=== PATIENT | female | born 1945 | race Caucasian/White ===

== ENCOUNTER → 2018-05-17 15:58 | Outpatient (CLI) | payer MEDICARE, BC, SELFPAY ==
--- NOTE | 2018-05-17 16:01 | CI_ITS ---
Cerebrovascular Exam Indications: 785.9 Bruit. IMPRESSIONS 1. The bilateral vertebral arteries are patent with normal antegrade flow. 2. Study suggests less than 20% stenosis involving the right internal carotid artery. 3. Study suggests 20-49% stenosis involving the left internal carotid artery. Visually looks greater than 50% Carotid duplex study. Complete study and Doppler flow study including spectral analysis, color and naqvi scale imaging. Location: Vascular laboratory. Patient status: Outpatient. Tables: Arterial flow: + +--------+--------+ Location V sys V ed + +--------+--------+ Right CCA - proximal 66cm/s 18.9cm/s + +--------+--------+ Right CCA - distal 58.9cm/s 16.5cm/s + +--------+--------+ Right ECA 82.5cm/s -------- + +--------+--------+ Right ICA - proximal 73.9cm/s 23.6cm/s + +--------+--------+ Right ICA - mid 67.6cm/s 20.4cm/s + +--------+--------+ Right ICA - distal 77cm/s 26.7cm/s + +--------+--------+ Right vertebral 47.1cm/s -------- + +--------+--------+ Left CCA - proximal 79.4cm/s 18.1cm/s + +--------+--------+ Left CCA - distal 85.6cm/s 25.1cm/s + +--------+--------+ Left ECA 72.3cm/s -------- + +--------+--------+ Left ICA - proximal 115cm/s 28.3cm/s + +--------+--------+ Left ICA - mid 91.1cm/s 27.5cm/s + +--------+--------+ Left ICA - distal 108cm/s 31.4cm/s + +--------+--------+ Left vertebral 55.8cm/s -------- + +--------+--------+ Velocity ratios: + + + + + + Right, V sys Right, V ed Left, V sys Left, V ed + + + + + + Max ICA/dist CCA 1.31 1.62 1.34 1.25 + + + + + + (Report amended ) Electronically signed by: Dominik Park [id number]
== END ==
PROVIDERS: PCP Family Medicine; Visit Provider Internal Medicine
DX: R09.89 Other specified symptoms and signs involving the circulatory and respiratory systems (principal); R42 Dizziness and giddiness
CPT/HCPCS: 93270; 93880

== ENCOUNTER → 2018-05-19 09:09 | Outpatient (CLI) | payer MEDICARE, BC, SELFPAY ==
--- NOTE | 2018-05-19 09:15 | CA_ITS ---
PROCEDURE: 2-D M-mode and color Doppler study INDICATIONS FOR THE TEST: Chest pain COPD Heart Murmur Tobacco Smoking Palpitations Fatigue Syncope Edema Hypertension+Diabetes Mellitus Rheumatic Fever SOB+JEONG Obesity Hyperlipidemia+ Family History HD Additional History KEENAN PATIENT INFORMATION HEIGHT: 62 WEIGHT:183 GENDER: Female B/P:175/66 2-D/M-MODE INTERPRETATION: 2-D MEASUREMENTS OBSERVED VALUES IN CMS Right Ventricular Dimension (RVDd) 2.4 Interventricular Septum (Thickness)(IVsd) 1.4 Left Ventricular Internal Dimensions(LVIDd) 2.6 Left Ventricular Posterior Wall (Thickness)(LVPWd) 1.2 Aortic Root 3.0 Aortic Cusp Separation 1.9 Left Atrial Dimensions (LAD) 3.9 2D 1. Left atrium is mildly enlarged, left ventricle is normal size, mild concentric left ventricular hypertrophy, visually estimated ejection fraction 55% with no regional wall motion abnormality. 2. The right atrium and right ventricle are normal size and contractility. 3. The aortic valve is thickened and calcified leaflet continue to display mobility. 4. The mitral and tricuspid valve leaflets are minimally thickened. 5. The pulmonic valve is poorly visualized. 6. No significant pericardial effusion noted. DOPPLER INTERROGATION: Doppler interrogation of the aortic, mitral and tricuspid valvular presence of mild aortic, mild mitral and tricuspid regurgitation. Calculated right ventricular systolic pressure is 39 mmHg consistent with mild pulmonary hypertension, grade 1 diastolic dysfunction seen with tissue Doppler evidence of raised left atrial pressure. CONCLUSION: 1. Mildly enlarged left atrium, normal left ventricular size, mild concentric left ventricular hypertrophy, visually estimated ejection fraction 55% with no regional wall motion abnormality, grade 1 diastolic dysfunction seen with tissue Doppler evidence of raised left atrial pressure. 2. Mild aortic, mild mitral and tricuspid regurgitation, calculated right ventricular systolic pressure 39 mmHg consistent with mild pulmonary hypertension. 3. No significant pericardial effusion noted.
--- NOTE | 2018-05-19 10:22 | CT_ITS ---
CT angio neck INDICATION: ITS.REASON: BRUIT, DIZZINESS, SOB, abnormal duplex of the carotid arteries ORDERING PHYSICIAN: Rafa Fountain MD PATIENT AGE: 72 years COMPARISON: None TECHNIQUE: Axial images are obtained following the intravenous administration of 100 mL of Isovue-370 contrast. Sagittal and coronal reformatted images are reviewed as well. All CT scans at the facility use one or more dose reduction, viz: automated exposure control, ma/kV adjustment per patient size (including targeted exams where dose is matched to indication, i.e. head), or iterative reconstruction technique. FINDINGS: No significant narrowing of the great vessels. Calcific plaque is present at the right bulb and proximal ICA with approximately 30% stenosis of the proximal ICA. The mid and distal aspect of the right ICA have an unremarkable appearance with only mild atheromatous calcification within the cavernous portion. No aneurysms apparent. Small amount of plaque is present at the ostium of the vertebral artery on the right. Left common carotid has an unremarkable appearance. There is focal calcific plaque at the posterior aspect of the ostium of the left internal carotid artery. This causes moderate to high-grade stenosis of 66-70%. The distal aspect of the ICA is unremarkable appearance. Left vertebral has an unremarkable appearance. Nonvascular findings: Multiple surgical clips are present throughout the neck. Scattered small nodes are present. No adenopathy or mass or abnormal fluid collection apparent. No enhancing lesions of the brain. IMPRESSION: 1. Moderate to high grade stenosis of the ostium of the left internal carotid artery of 66-70% secondary to a focal calcific plaque posteriorly 2. 30% stenosis of the proximal right ICA. 3. No evidence of great vessel stenosis. 4. Patent bilateral vertebral arteries
[2018-05-19 10:27] LABS: Anion Gap 10.2 mEq/L (5-15); Blood Urea Nitrogen 19 mg/dL (7-18); Calcium 8.6 mg/dL (8.5-10.1); Carbon Dioxide 29 mmol/L (21.0-32.0); Chloride 104 mmol/L (98-107); Creatinine,Serum 0.92 mg/dL (0.55-1.02); Estimated Glomerular Filt Rate 60 ml/min (>60); GFR (African American) 72 ML/MIN (>60); Glucose 88 mg/dL (74-106); Potassium 4.2 mmoL/L (3.5-5.1); Sodium 139 mmol/L (136-145)
== END ==
PROVIDERS: Urology; PCP Family Medicine; Visit Provider Internal Medicine
DX: R06.02 Shortness of breath (principal); I10 Essential (primary) hypertension; R09.89 Other specified symptoms and signs involving the circulatory and respiratory systems; R20.0 Anesthesia of skin; R42 Dizziness and giddiness
CPT/HCPCS: 36415; 70498; 80048; 93270; 93306; Q9967

== ENCOUNTER → 2018-05-21 11:51 | Outpatient (CLI) | payer MEDICARE, BC, SELFPAY ==
--- NOTE | 2018-05-21 11:53 | NM_ITS ---
SPECT MYOCARDIAL PERFUSION SCAN, REST AND STRESS: EXERCISE STRESS: [facility] REVIEW QGS EF AND WALL MOTION EVALUATION: QPS - PERFUSION EVALUATION: HISTORY: Fatigue, HTN PROCEDURE: Rest imaging performed after administration of10.50 millicuries Tc MIBI. Dose administered at12:10 p.m., with imaging thereafter. Stress imaging was then performed following5 minutes of exercise stress. The patient achieved a heart [id number] with projected heart rate of125 . Resting BP189/90 with stress 195/95. At maximum exercise stress,31.1 millicuries Tc MIBI administered at1:50 p.m. with [id number] minutes thereafter. FINDINGS: Perfusion Evaluation: The single slice spect images as well as the [facility] bull's-eye data summary were reviewed. Wall Motion and Ejection Fraction Evaluation: Gated SPECT review and analysis used to evaluate these features. There is a 72 % left ventricular ejection fraction. There seems to be good wall motion Stress images reveal decreased activity in the anterior wall while rest images reveal normal myocardial activity IMPRESSION: Anterior wall reversible ischemia with normal ejection fraction normal wall motion. High risk abnormal stress test
--- NOTE | 2018-05-21 14:39 | HMH.ITSHM ---
Current Home Medications as stated by this patient Dahlia Flores or sales representative [employer]. []lisinopril levothyroxine asa zoloft omeprazole
== END ==
PROVIDERS: PCP Family Medicine; Visit Provider Internal Medicine
DX: I10 Essential (primary) hypertension (principal); R06.02 Shortness of breath; R09.89 Other specified symptoms and signs involving the circulatory and respiratory systems; R20.0 Anesthesia of skin; R20.2 Paresthesia of skin; R55 Syncope and collapse
CPT/HCPCS: 78452; 93017; A9502

== ENCOUNTER → 2020-10-22 10:29 | Outpatient (CLI) | payer MEDICARE, BC, SELFPAY ==
[2020-10-22 11:13] LABS: Chloride 104 mmol/L (98-107); Sodium 138 mmol/L (136-145)
[2020-10-22 11:14] LABS: Potassium 4.5 mmoL/L (3.5-5.1)
[2020-10-22 11:16] LABS: Blood Urea Nitrogen 19 mg/dl (7-17); Estimated Glomerular Filt Rate 54 ml/min (>60); GFR (African American) 65 ML/MIN (>60)
[2020-10-22 11:17] LABS: Anion Gap 14.5 mEq/L (5-15); Carbon Dioxide 24 mmol/L (22.0-30.0); Glucose 84 mg/dl (74-100)
== END ==
PROVIDERS: Visit Provider Internal Medicine
DX: I10 Essential (primary) hypertension (principal); I25.10 Atherosclerotic heart disease of native coronary artery without angina pectoris; I27.20 Pulmonary hypertension, unspecified; I65.29 Occlusion and stenosis of unspecified carotid artery; R09.89 Other specified symptoms and signs involving the circulatory and respiratory systems
CPT/HCPCS: 36415; 80048

== ENCOUNTER → 2020-12-10 13:16 | Outpatient (CLI) | payer MEDICARE, BC, SELFPAY ==
--- NOTE | 2020-12-10 | US_ITS ---
APPROVED REPORT Music Education Adjunct Professor: Ana CORTEZ Indications Limb Pain: Left Rest Pain: Edema CAD Risk Factors Hypertension CAD Pressures/Indices Right Indices Left Indices Brachial 157.00 mmHg Brachial 157.00 mmHg Low Thigh 171.00 mmHg 1.09 Low Thigh 254.00 mmHg 0.00 Calf 140.00 mmHg 0.89 Calf 154.00 mmHg 0.98 Ankle(PT) 137.00 mmHg 0.87 Ankle(PT) 168.00 mmHg 1.07 Ankle(DP) 152.00 mmHg 0.97 Ankle(DP) 169.00 mmHg 1.08 Digit 111.00 mmHg 0.71 Digit 124.00 mmHg 0.79 Findings Abnormal weakened pulses noted in bilateral posterior tibial arteries. Dampened waveforms throughout exam. Rt SARIAH=0.97 Lt SARIAH=1.08 Rt TPI=0.71 Lt TPI=0.79 Conclusion Abnormal weakened pulses noted in bilateral posterior tibial arteries. Dampened waveforms throughout exam. Rt SARIAH=0.97 Lt SARIAH=1.08 Rt TPI=0.71 Lt TPI=0.79 Electronically signed by : Dominik Park MD 12/10/2020 15:47:51
== END ==
PROVIDERS: PCP Family Medicine; Visit Provider Urology
DX: R09.89 Other specified symptoms and signs involving the circulatory and respiratory systems (principal); M79.662 Pain in left lower leg
CPT/HCPCS: 93923

== ENCOUNTER → 2022-06-04 13:51 | Outpatient (CLI) | payer MEDICARE, BC, SELFPAY ==
--- NOTE | 2022-06-04 13:59 | CA_ITS ---
APPROVED REPORT EXAM: Comprehensive 2D, Doppler, and color-flow Echocardiogram Gyroscopic Engineering Technician: Nellie Styles RVT Ht: 5 ft 3 in Wt: 174lbs BSA: 1.82 BP: 171/60 mmHg Indications: SOA,RBBB,CAD,PHTN,HTN 2D Dimensions LVOT 2.01 cm (M/F) 1.5-2.5 LA Volume 83.50 mL LA Volume Index 45.88 mL/m2 (M/F) 16-34 M-Mode Dimensions RVDd 2.11 cm (0.9-2.6) LA Diam 4.47 cm (1.9-4.0) LVDd 5.13 cm (3.5-5.7) Ao Diam 3.06 cm (2.0-3.7) LVDs 3.49 cm (3.5-5.7) IVSd 0.84 cm (0.6-1.1) PWd 0.54 cm (0.6-1.1) EF (Teich) 59.80% FS 32.00% EDV (Teich) 125.50 mL TAPSE 1.66 (<1.7) ESV (Teich) 50.50 mL LV Diastology E Decel Time 187.00 (160-240 msec) MED E' 5.20 (< 7 cm/sec) E'/MED E' Ratio 24.08 (>14) LAT E' 11.30 (<10 cm/sec) E/LAT E' Ratio 11.08 (>14) Aortic Valve AI PHT 808.00 ms AO Peak GR. 9.00 mmHg Mitral Valve MV E Max Josafat. 125.00 (40-130 cm/s) MV Decel. Time 187.00 (160-240 ms) MV PHT 55.00 ms Pulmonary Valve PV Peak Velocity 132.00 (50-150 cm/s) Tricuspid Valve TR P. Velocity 305.00 cm/s RAP Estimate 10.00 mmHg RVSP 47.20 mmHg Left Ventricle Left atrium is moderately enlarged, left ventricle is normal size, mild concentric left ventricular hypertrophy, estimated ejection fraction 55% with no regional wall motion abnormality, grade 1 diastolic dysfunction seen with tissue Doppler evidence of raise left atrial pressure. Right Ventricle Right atrium and right ventricle are normal size and contractility. Aortic Valve Aortic valve is thickened and calcified without aortic stenosis, there is mild aortic insufficiency. Mitral Valve Mitral valve has dense mitral calcification, leaflets are minimally thickened, there is no mitral stenosis, there is mild mitral regurgitation. Tricuspid Valve Tricuspid valve is grossly normal, there is mild tricuspid regurgitation, calculated right ventricular systolic pressure 47 mmHg. Pulmonic Valve Pulmonic valve is poorly visualized. Great Vessels Aortic root is normal size. Inferior vena cava is normal size with normal inspiratory collapse. Pericardium No significant pericardial effusion noted. Conclusion 1. Enlarged left atrium, normal left ventricular size, mild concentric left ventricular hypertrophy, estimated ejection fraction 55% with no regional wall motion abnormality, grade 1 diastolic dysfunction seen with tissue Doppler evidence of raise left atrial pressure. 2. Thickened and calcified aortic valve without aortic stenosis, there is mild aortic insufficiency. 3. Mild mitral and tricuspid regurgitation, calculated right ventricular systolic pressure is 47 mmHg. 4. No significant pericardial effusion noted. 5. Inferior vena cava is normal size with normal inspiratory collapse. Electronically signed by : Ru Regalado MD 06/04/2022 20:35:21
== END ==
PROVIDERS: PCP Family Medicine; Visit Provider Nurse Practitioner Family
DX: I25.10 Atherosclerotic heart disease of native coronary artery without angina pectoris (principal); R06.02 Shortness of breath
CPT/HCPCS: 93306